=== PATIENT | female | born 1985 | race Hispanic/Latino ===

== ENCOUNTER 2018-02-11 06:11 | Outpatient (CLI) | payer BC ==
--- NOTE | 2018-02-11 07:42 | Ultrasound Report ---
ULTRASOUND ABDOMEN COMPLETE: TECHNIQUE: Transabdominal ultrasound with color Doppler interrogation. HISTORY: Generalized abdominal pain. COMPARISON: none. FINDINGS: LIVER: Normal. BILIARY SYSTEM: Normal. PANCREAS: Normal. SPLEEN: Normal. KIDNEYS: Normal. AORTA/IVC: Normal. ASCITES: None. IMPRESSION: Abdominal sonogram within normal limits.
== END 2018-02-11 06:12 | disposition home or self-care (01) ==
LOC: US 06:11
PROVIDERS: ATTEND Internal Medicine Gastroenterology
DX: R10.84 Generalized abdominal pain (principal); R19.4 Change in bowel habit
CPT/HCPCS: 76700

== ENCOUNTER 2018-04-06 03:26 | Emergency (ER) | payer BC ==
[~2018-04-06 03:26] MED LIST: DECADRON IM ONE; PEPCID PO ONE
[2018-04-06] MEDS ORDERED: PEPCID ONE (03:40)
[2018-04-06] MEDS ORDERED: DECADRON ONE (03:40)
== END 2018-04-06 04:30 | disposition home or self-care (01) ==
LOC: ED 03:26
DX: H57.10 Ocular pain, unspecified eye (principal); Z53.21 Procedure and treatment not carried out due to patient leaving prior to being seen by health care provider
CPT/HCPCS: J1100

== ENCOUNTER 2018-07-19 11:53 | Day surgery (SDC) | payer BC ==
[2018-07-19] MEDS ORDERED: WATER FOR IRRIG STERILE IR ONE (12:18)
--- NOTE | 2018-07-19 12:35 | Anesthesia Consultation ---
Anesthesia Consult and Med Hx Date of service: 07/19/18 - Airway Anesthetic Teeth Evaluation: Good ROM Head & Neck: Adequate Mental/Hyoid Distance: Adequate Mallampati Class: Class II Intubation Access Assessment: Probably Good - Pre-Operative Health Status ASA Pre-Surgery Classification: ASA2 Proposed Anesthetic Plan: MAC - Gastrointestinal Hx Gastroesophageal Reflux Disease: Yes - Additional Comments Anesthesia Medical History Comments: hemorhoids
[2018-07-19] MEDS ORDERED: NACL 0.9% 1000 ML 1,000 ML IV SCH (13:00)
--- NOTE | 2018-07-19 13:05 | Anesthesia Day of Surgery ---
Anesthesia Day of Surgery - Day of Surgery Patient Examined: Yes Patient H&P Reviewed: Yes Patient is NPO: Yes
[2018-07-19] MEDS ORDERED: DIPRIVAN 10 MG/ML IV ONE ×2 (13:09)
--- NOTE | 2018-07-19 13:53 | Operative Report ---
PROCEDURE: EGD with cold biopsies. INDICATION: 1. GERD. 2. Dyspepsia. MEDICATIONS: Propofol per TRIAL MANAGER. COMPLICATIONS: None. DESCRIPTION OF PROCEDURE: The patient was brought to procedure suite. The patient had the procedure discussed with her at length. All risks, complications, and benefits discussed after which the patient signed for the procedure performed. The patient was placed in left lateral decubitus position. Mouth block was placed in the patient's oral cavity. After adequate sedation medication as above, the endoscope placed in the mouth and brought to the level of second portion of duodenum. Retroflexion view performed. The patient's vital signs remained stable throughout the procedure. FINDINGS: There was noted to be a small hiatal hernia at GE junction 38 cm from the gums. Irregular Z line noted in that area. Biopsies were taken and sent to pathology. Remaining esophagus otherwise appeared to be normal. It should be noted biopsies were taken of the Z-line. There was mild antral gastritis noted. Biopsies were taken and sent to pathology. The remaining stomach otherwise appeared to be normal. The duodenum appeared to be normal. Retroflexion view performed in the stomach showed no other pathology other than noted above. The patient tolerated the procedure well. No complications of procedure. IMPRESSION: 1. Hiatal hernia. 2. Irregular Z line, biopsies performed. 3. Otherwise, normal esophagus. 4. Gastritis, biopsies performed. 5. Otherwise, normal stomach. 6. Normal duodenum. RECOMMENDATIONS: 1. Follow up biopsy results. 2. If H. pylori positive, we will treat. 3. PPI daily. 4. Flexible sigmoidoscopy to follow, further recommendations based on flex sig results. JOB# [id number] [facility]
--- NOTE | 2018-07-19 13:54 | Operative Report ---
. INDICATION: 1. Rectal bleeding. 2. Change in bowel habits. MEDICATIONS: Propofol per BAGGAGE AGENT. COMPLICATIONS: None. DESCRIPTION OF PROCEDURE: The patient was brought to the procedure suite. The patient had the procedure discussed with her at length. All risks, complications, and benefits discussed after which the patient signed for the procedure performed. The patient was placed in left lateral decubitus position. Rectal exam performed prior to insertion of the scope. After adequate sedation medication as above, scope was inserted into the rectum and brought to the level of descending colon. Retroflexion view performed. The patient's vital signs remained stable throughout the procedure. FINDINGS: There were no mass lesions, polyps, or diverticula noted during this procedure. Retroflexion and perianal exam showed small internal and external hemorrhoids. Given the size, no hemorrhoidal banding was performed. The patient tolerated the procedure well. No complications noted during the procedure. IMPRESSION: 1. Small internal and external hemorrhoids. 2. Otherwise, normal flexible sigmoidoscopy. RECOMMENDATIONS: 1. Sitz bath. 2. High fiber diet. 3. Follow up in clinic in 6-12 weeks. JOB# [id number] [facility]
[2018-07-19 13:56] VITALS: BP 117/71
== END 2018-07-19 11:54 | disposition home or self-care (01) ==
LOC: GIO 11:53
PROVIDERS: ATTEND Internal Medicine Gastroenterology
DX: K29.50 Unspecified chronic gastritis without bleeding (principal); K62.5 Hemorrhage of anus and rectum; K64.8 Other hemorrhoids; K57.30 Diverticulosis of large intestine without perforation or abscess without bleeding; K21.9 Gastro-esophageal reflux disease without esophagitis; R13.10 Dysphagia, unspecified; Z98.891 History of uterine scar from previous surgery; Z98.890 Other specified postprocedural states
CPT/HCPCS: 43239; 45330; 81025; 88305; 88342; J2704

== ENCOUNTER 2018-08-26 21:05 | Outpatient (CLI) | payer BC ==
--- NOTE | 2018-08-26 23:24 | XRay Report ---
FINAL REPORT EXAM: XR ANKLE 3+V RT HISTORY: ANKLE PAIN, SPRAIN TECHNIQUE: Three views of the right ankle PRIORS: 05/15/2018 FINDINGS: The bones are normally aligned and mineralized. The joint spaces are well-preserved. There is no evidence of acute fracture. The soft tissues are unremarkable. IMPRESSION: No evidence of acute fracture or subluxation.
--- NOTE | 2018-08-27 00:17 | XRay Report ---
FINAL REPORT EXAM: XR FOOT 3+V LT HISTORY: FOOT PAIN, SPRAIN TECHNIQUE: Three views of the left foot PRIORS: None. FINDINGS: The bones are normally aligned and mineralized. The joint spaces are well-preserved. There is no evidence of acute fracture. The soft tissues are unremarkable. IMPRESSION: No evidence of acute fracture or subluxation.
== END 2018-08-26 21:06 | disposition home or self-care (01) ==
LOC: XRAY 21:05
PROVIDERS: ATTEND Podiatrist Foot & Ankle Surgery
DX: S93.431A Sprain of tibiofibular ligament of right ankle, initial encounter (principal); G60.8 Other hereditary and idiopathic neuropathies; K21.9 Gastro-esophageal reflux disease without esophagitis; X58.XXXA Exposure to other specified factors, initial encounter; Y93.89 Activity, other specified; Y92.89 Other specified places as the place of occurrence of the external cause; Y99.8 Other external cause status